=== PATIENT | male | born 1990 | race Caucasian/White ===

== ENCOUNTER 2022-12-16 01:39 | Day surgery (SDC) | payer OTHER, SELFPAY ==
[2022-12-09 12:20] VITALS: BMI 23.8
[2022-12-16 13:06] VITALS: BP 131/81; PULSE 63; RESP 18; TEMP 36.8; O2SAT 100
[2022-12-16] MEDS: LACTATED RINGERS 1,000 ML 150 ML IV CONT (13:16)
--- NOTE | 2022-12-16 13:25 | PM.HPGS ---
History of Present Illness History of Present Illness Consent: Risks, benefits, and alternatives have been discussed and questions answered. Patient agrees to proceed with procedure. Chief complaint: GERD Narrative: Tariq Spencer is a 32 year old male Presents for EGD. Patient has symptoms of heartburn and acid reflux for many years. He states he was told he had heartburn at age 7 or 8. 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 He has been abstinent of alcohol recently. Currently obtain symptoms relief from heartburn while taking Prilosec 20mg p.o. daily. He notices heartburn promptly if he discontinues this medication. He does however continue to have difficulty if he eats spicy foods or red sauces. He denies any dysphagia or bleeding. Patient referred for EGD to evaluate more thoroughly. Past medical history is significant for bipolar illness. Family history is noncontributory. Review of Systems Review of Systems: Review of systems noncontributory. [facility] Past Medical History Medical History (Updated 11/20/22 @ 17:57 by Donato Faust MD) Bipolar 2 disorder GERD (gastroesophageal reflux disease) Suprasellar mass Social History Social History (Updated 12/09/22 @ 12:38 by Laquita Cox RN) Years smoked: 8 Smoking status: Current every day smoker Tobacco type: cigarettes and e-cigarettes/vaping Second hand tobacco smoke exposure: Yes Additional smoking assessment comments: vapes nicotine daily, previous cigarette use Alcohol intake: former Alcohol use details: previous ETOH abuse (1 pint hard liquer daily) none for 7 years (2016) Substance use: current Substance use type: marijuana Other substance usage details: 3 times weekly Living arrangements: with family Gender identity (if verbalized by the patient): Male Sexual Orientation (if Verbalized by the Patient): Straight or Heterosexual Spiritual care concerns: No Agree to blood products: No Meds Home Medications and Allergies Home Medications Medication Instructions Recorded Confirmed Type clonazepam 0.5 mg tablet 0.5 mg PO BID 11/20/22 12/09/22 History diphenhydramine HCl 25 mg tablet 50 mg PO QHS 11/20/22 12/09/22 History (Benadryl Allergy) escitalopram oxalate 20 mg tablet 20 mg PO DAILY 11/20/22 12/09/22 History (Lexapro) magnesium 200 mg tablet 200 mg PO DAILY 11/20/22 12/09/22 History melatonin 3 mg capsule 3 mg PO QHS 11/20/22 12/09/22 History qulelcju-vkgflvgj-zhqtk acid 400 1 tablet PO DAILY 11/20/22 12/09/22 History mcg-vit K 20 mcg-lycop 300 mcg tablet omeprazole magnesium 20 mg 20 mg PO DAILY 11/20/22 12/09/22 History tablet,delayed release (Prilosec OTC) hydroxyzine HCl 25 mg tablet 25 mg PO PRN PRN Anxiety 12/09/22 12/09/22 History lamotrigine 200 mg tablet 200 mg PO BID 12/09/22 12/16/22 History trazodone 50 mg tablet 50 mg PO PRN PRN Insomnia 12/09/22 12/09/22 History Allergies Allergy/AdvReac Type Severity Reaction Status Date / Time bee pollen Allergy Intermediate Rash Verified 12/16/22 13:03 Vital Signs Vital Signs - 24 hr 12/16/22 13:06 Temperature 98.2 F Pulse Rate 63 Respiratory Rate 18 Blood Pressure 131/81 Pulse Oximetry 100 Oxygen Delivery Room Air Exam Narrative: Physical exam reveals patient to be alert. Vital signs stable. HEENT exam is unremarkable. Patient is anicteric. Lungs are clear to auscultation and percussion. Heart is without murmur or extra sounds. Abdomen bowel sounds are present soft nontender with no hepatosplenomegaly. Assessment and Plan Assessment and plan (1) GERD (gastroesophageal reflux disease): Qualifiers: Esophagitis presence: without esophagitis Qualified Code(s): K21.9 - Gastro-esophageal reflux disease without esophagitis Code(s): K21.9 - Gastro-esophageal reflux disease without esophagitis Status: Acute Assessment and Plan:
--- NOTE | 2022-12-16 13:37 | WPDANESEPPF ---
Anes - Initial Pre Proc Eval Procedure: Operation Date: 12/16/22 14:00 Proposed Procedures p Esophagogastroduodenoscopy - Sd Powers MD Date/Time: 12/16/22 13:37 Surgeon: Sd Powers MD Pre Op Diagnosis: GERD Patient Data Age: 32 Gender: M Height: 1.83 m Weight: 77.2 kg Last Vital Signs Temp 36.8 C 12/16/22 13:06 Pulse 63 12/16/22 13:06 Resp 18 12/16/22 13:06 BP 131/81 12/16/22 13:06 Pulse Ox 100 12/16/22 13:06 O2 Del Method Room Air 12/16/22 13:06 Allergies Allergy/AdvReac Type Severity Reaction Status Date / Time bee pollen Allergy Intermediate Rash Verified 12/16/22 13:03 Home Medications Medication Instructions Recorded Confirmed Type clonazepam 0.5 mg tablet 0.5 mg PO BID 11/20/22 12/09/22 History diphenhydramine HCl 25 mg tablet 50 mg PO QHS 11/20/22 12/09/22 History (Benadryl Allergy) escitalopram oxalate 20 mg tablet 20 mg PO DAILY 11/20/22 12/09/22 History (Lexapro) magnesium 200 mg tablet 200 mg PO DAILY 11/20/22 12/09/22 History melatonin 3 mg capsule 3 mg PO QHS 11/20/22 12/09/22 History upigrzwp-hdnarizl-zbeil acid 400 1 tablet PO DAILY 11/20/22 12/09/22 History mcg-vit K 20 mcg-lycop 300 mcg tablet omeprazole magnesium 20 mg 20 mg PO DAILY 11/20/22 12/09/22 History tablet,delayed release (Prilosec OTC) hydroxyzine HCl 25 mg tablet 25 mg PO PRN PRN Anxiety 12/09/22 12/09/22 History lamotrigine 200 mg tablet 200 mg PO BID 12/09/22 12/16/22 History trazodone 50 mg tablet 50 mg PO PRN PRN Insomnia 12/09/22 12/09/22 History Patient hx anesthesia problems: none Family hx anesthesia problems: none Results Review: All pre-operative results and documents have been reviewed as part of the pre-operative evaluation. [facility] Past Medical History Medical History Bipolar 2 disorder GERD (gastroesophageal reflux disease) Suprasellar mass Social History Social History Years smoked: 8 Smoking status: Current every day smoker Tobacco type: cigarettes and e-cigarettes/vaping Second hand tobacco smoke exposure: Yes Additional smoking assessment comments: vapes nicotine daily, previous cigarette use Alcohol intake: former Alcohol use details: previous ETOH abuse (1 pint hard liquer daily) none for 7 years (2016) Substance use: current Substance use type: marijuana Other substance usage details: 3 times weekly Living arrangements: with family Gender identity (if verbalized by the patient): Male Sexual Orientation (if Verbalized by the Patient): Straight or Heterosexual Spiritual care concerns: No Agree to blood products: No Anes - Eval Final PreProcedure Day of Procedure 12/16/22 13:37 Patient weight: normal Heart: regular rate and rhythm Lungs: clear to auscultation Airway: Mallampati scale class II Neurological: alert and oriented Last oral intake: >/= 8 hours ASA classification: III Emergent: no Anesthetic plan: proceed Anesthesia type and monitoring: general GIVS and standard monitoring Results Review: All pre-operative results and documents have been reviewed as part of the pre-operative evaluation. Informed Consent: The patient's anesthetic plan and its attendant risks and benefits were discussed with the patient/family/POA. Questions were solicited and answers provided to the satisfaction of the patient/family/POA.
[2022-12-16 14:38] VITALS: BP 115/62; PULSE 66; RESP 24; O2SAT 100
[2022-12-16 14:48] VITALS: BP 116/76; PULSE 64; RESP 20; O2SAT 100
[2022-12-16 14:58] VITALS: BP 123/82; PULSE 63; RESP 23; O2SAT 99
== END 2022-12-16 15:00 | disposition home or self-care (01) ==
PROVIDERS: PCP Family Medicine; Visit Provider Internal Medicine Gastroenterology
PROC: 0DJ08ZZ Inspection of Upper Intestinal Tract, Via Natural or Artificial Opening Endoscopic (ICD-10-PCS; CPT 43235; principal; 2022-12-16 14:00)
DX: K21.9 Gastro-esophageal reflux disease without esophagitis (principal); F31.81 Bipolar II disorder; F17.290 Nicotine dependence, other tobacco product, uncomplicated
CPT/HCPCS: 43239; 87081; J2405; J2704; J3010; J7120